=== PATIENT | male | born 1975 | race Caucasian/White ===

== ENCOUNTER 2016-08-18 06:04 | Emergency (ER) | payer SELFPAY ==
[2016-08-18 06:34] VITALS: BP 160/81; PULSE 88; TEMP 97.8; BMI 24.3
[2016-08-18] MEDS ORDERED: PENICILLIN 250 MG TAB PO ONE (06:41)
[2016-08-18] MEDS ORDERED: IBUPROFEN 600 MG TAB PO STA (06:41)
[2016-08-18] MEDS ORDERED: METRONIDAZOLE 500 MG TAB PO STA (06:43)
--- NOTE | 2016-08-18 06:43 | EDPRACDOC ---
- General Information Chief Complaint: Toothache Stated Complaint: ABSCESS TOOTH Time Seen by Provider: 08/18/16 06:38 Information Source: Patient Home Medications: Home Medications Azithromycin 500 mg PO DAILY #5 tablet 04/17/14 Ibuprofen Tablet [Motrin] 600 mg PO Q6H #30 tab 08/18/16 Metronidazole [Flagyl] 500 mg PO BID #20 tab 08/18/16 Oxycodone HCl [Roxicodone] 5 mg PO Q4-6H PRN #15 tablet 08/18/16 Penicillin V Potassium 500 mg PO QID #40 tablet 08/18/16 Allergies/Adverse Reactions: Allergies Allergy/AdvReac Type Severity Reaction Status Date / Time No Known Allergies Allergy Verified 04/16/14 17:55 - History of Present Illness Onset: 3 DAYS HPI: PT PRESENTS WITH RIGHT UPPER FACIAL SWELLING FROM ABSCESSED TOOTH. PROGRESSING OVER THE LAST FEW DAYS. ED Past Medical History - History Reviewed Yes Nurses notes reviewed and agree except as marked - Patient Medical History Psychological History: Denies: Depression, Substance Use Disorder Systemic History: Denies: Cancer - Family Medical History Reports: Hypertension, Diabetes (sister), Cancer (Mother with ovarian cancer. Father with esophageal cancer.), Cardiac Disorders (FATHER WITH OR AT 40 YEARS OLD. PGF also with OR's and arrhythmia.). Denies: Stroke - Social Medical History Smoking Status: Never smoker Social History: Denies: Substance Use Disorder Lives In: Home EDM Review of Systems - Review of Systems ROS Negative Except as Marked: Yes All systems reviewed and were negative except as marked Constitutional: negative: Fever Mouth: Tooth Pain, Other (RIGHT FACIAL SWELLING) Respiratory: negative: Shortness of Breath Cardiovascular: negative: Chest Pain - Physical Exam Constitutional: Alert Oriented to: Time, Person, Place Last recorded Vital Signs: Last Vital Signs Temp 97.8 F 08/18/16 06:30 Pulse 88 08/18/16 06:30 Resp 18 08/18/16 06:30 BP 160/81 08/18/16 06:30 Pulse Ox 97 08/18/16 06:30 Oxygen Pulse Oxygen Saturation 97 O2 Device Oxygen Flow Rate Fraction of Inspired Oxygen ( FIO2) - HEENT Head: negative: Deformity, Laceration Eye Exam: negative: Conjunctival Injection, Pale Conjunctiva Nose: negative: Congestion, Discharge Neck: negative: Limited ROM - Integumentary Skin: Warm, Dry - Neurologic Memory Impaired: Normal Motor Function: Normal Mood Description: Anxious, Appropriate Thought: Coherent Perception: Normal ED Tooth Problem Exam - HEENT Face: Swelling (RIGHT MAXILLARY) Gingiva: Tender, Swelling, Red Palate: Normal Mouth Range of Motion: Normal - Other Exam Other Exam Findings: DIFFUSE POOR DENTITION. Decision Time to Discharge: 06:43 - Departure Yes I personally saw and evaluated the patient. Disposition: Home Condition: Stable Final Diagnosis: Dental abscess (peridontal) Instructions: Dental Abscess (ED) Education/Counseling Given To: Patient Education/Counseling Given Regarding: Diagnosis, Treatment, Prognosis, Follow Up Prescriptions: Ibuprofen Tablet [Motrin] 600 mg PO Q6H #30 tab Metronidazole [Flagyl] 500 mg PO BID #20 tab Oxycodone HCl [Roxicodone] 5 mg PO Q4-6H PRN #15 tablet PRN Reason: Breakthrough Pain Penicillin V Potassium 500 mg PO QID #40 tablet
== END 2016-08-18 06:58 | disposition home or self-care (01) ==
LOC: ED 06:04
DX: K04.7 Periapical abscess without sinus (principal)
CPT/HCPCS: 99283; J3490